=== PATIENT | male | born 1975 | race Caucasian/White ===

== ENCOUNTER → 2023-01-07 | Outpatient (CLI) | payer OTHER ==
[~2023-01-07] MED LIST: CARB-223 AD; FLUT16SP NASAL; LORA10TA7 PO
== END | disposition home or self-care (01) ==
LOC: RADPV 10:41
PROVIDERS: ATTEND Internal Medicine
DX: N43.3 Hydrocele, unspecified (principal); N49.2 Inflammatory disorders of scrotum
CPT/HCPCS: 76870